=== PATIENT | female | born 1995 | race African-American/Black ===

== ENCOUNTER 2020-07-06 10:59 | Emergency (ER) | payer MEDICAID ==
[~2020-07-06] VITALS: Ht 177.8 cm; Wt 90.7 kg
[2020-07-06 11:07] VITALS: BP_SYST 129
[2020-07-06 11:40] VITALS: BP_SYST 129
== END 2020-07-06 11:40 | disposition home or self-care (01) ==
LOC: SED 10:59
DX: B35.4 Tinea corporis (principal); R03.0 Elevated blood-pressure reading, without diagnosis of hypertension
CPT/HCPCS: 99282

== ENCOUNTER 2020-11-14 17:58 | Emergency (ER) | payer MEDICAID ==
[~2020-11-14] VITALS: Ht 180.3 cm; Wt 97.5 kg
[2020-11-14 18:05] VITALS: BP_SYST 141
[2020-11-14 19:25] VITALS: BP_SYST 141
== END 2020-11-14 19:26 | disposition home or self-care (01) ==
LOC: SED 17:58
DX: T65.891A Toxic effect of other specified substances, accidental (unintentional), initial encounter (principal); F12.90 Cannabis use, unspecified, uncomplicated; Y92.89 Other specified places as the place of occurrence of the external cause
CPT/HCPCS: 99283

== ENCOUNTER 2021-02-20 21:06 | Emergency (ER) | payer MEDICAID ==
[~2021-02-20] VITALS: Ht 177.8 cm; Wt 95.3 kg
--- NOTE | 2021-02-20 21:38 | NUR ---
ER Dr. Robison at bedside examining patient.
[2021-02-20 21:46] VITALS: BP_SYST 108
--- NOTE | 2021-02-20 21:46 | NUR ---
Patient triaged and placed in waiting room. VSS and patient appears in no acute distress at this time. Accompanied by self, awaiting available bed, and MD notified of need for MSE.
--- NOTE | 2021-02-20 21:57 | NUR ---
Patient to ER bed 01 to gown for evaluation. Side rails up. Report given to BERTO Nagel
[2021-02-20] MEDS ORDERED: KETOROLAC TROMETHAMINE 60 MG/2 ML VIAL IM ONE (22:00)
--- NOTE | 2021-02-20 22:07 | NUR ---
pt a&o x4 from home c/o middle/center back pain that radiates to lower right side. pt reports 6 out of 10. pt states pain started yesterday afternoon and continued to worsen. pt denies trauma to back. 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 pt c/o of burning rash on right armpit.
--- NOTE | 2021-02-20 22:15 | NUR ---
radiology at bedside for xray
--- NOTE | 2021-02-20 22:15 | NUR ---
Urine HCG done, results negative
[2021-02-20] MEDS ORDERED: HYDR-3919 PO (23:04)
[2021-02-20] MEDS ORDERED: IBUP-1969 PO (23:04)
[2021-02-20 23:21] VITALS: BP_SYST 112
--- NOTE | 2021-02-20 23:21 | NUR ---
Patient given written and verbal discharge instructions and verbalizes understanding. ER MD discussed with patient the results and treatment provided. Patient in stable condition. ID arm band removed. no iv Rx of norco and ibuprofen given. Patient educated on pain management and to follow up with PMD. Pain Scale [2/10. Opportunity for questions provided and answered. Medication side effect fact sheet provided.
== END 2021-02-20 23:21 | disposition home or self-care (01) ==
LOC: SED 21:06
DX: S23.3XXA Sprain of ligaments of thoracic spine, initial encounter (principal); X50.1XXA Overexertion from prolonged static or awkward postures, initial encounter; Y93.89 Activity, other specified; Y92.89 Other specified places as the place of occurrence of the external cause; Y99.8 Other external cause status
CPT/HCPCS: 71046; 81025; 93005; 96372; 99283; J1885

== ENCOUNTER 2022-05-10 07:23 | Emergency (ER) | payer MEDICAID ==
[~2022-05-10] VITALS: Ht 177.8 cm; Wt 97.5 kg
[~2022-05-10 07:23] MED LIST: HYDR-3919 PO; IBUP-1969 PO
[2022-05-10 07:31] VITALS: BP_SYST 139
--- NOTE | 2022-05-10 07:34 | NUR ---
Placed in room 7 . Placed on campus monitor, blood pressure machine and pulse oximeter. To gown for exam. Side rails up. Report given to BERTO ALONZO.
--- NOTE | 2022-05-10 07:40 | NUR ---
DR. EDMONDS MET WITH PT AND DISCUSSE POC. PT WILL RECEIVE LABS TO ASSESS BLOOD LOSS. PT WILL NEED TO FOLLOW UP WITH GYNOCOLOGIST. PT VERBALIZED UNDERSTANDING.
--- NOTE | 2022-05-10 07:40 | NUR ---
RECEIVED PT FROM SULTANA THOMSON, ASSUMED CARE. PT AAOX4. RESP E/U. ON R/A. PT HAS C/O NAUSEA AND DIZZINESS, BLEEDING 5 PADS A DAY APPROX X ONE MONTH, RECENTLY WENT TO AN ER AND RECEIVED MEDICATION FOR THE ISSUE. DENIES PAIN. SKIN CDI, NO EDEMA. AWAITING ORDERS.
[2022-05-10] MEDS ORDERED: ACETAMINOPHEN 325 MG TABLET PO ONE (07:45)
--- NOTE | 2022-05-10 08:01 | NUR ---
LAB DRAW OBTAINED, UA SAMPLE OBTAINED AND TAKEN TO LAB.
[2022-05-10 08:06] LABS: BASOPHILS % (AUTO) 0.9 % (0.0-2.0); EOSINOPHILS % (AUTO) 0.7 % (0.0-4.0); HEMATOCRIT 38.8 % (36-48); HEMOGLOBIN 13.1 g/dL (12.0-16.0); LYMPHOCYTES # (AUTO) 1.1 K/uL (1.0-5.5); LYMPHOCYTES % (AUTO) 21.1 % (20.5-51.5); MEAN CORPUSCULAR HEMOGLOBIN 28 pg (27-31); MEAN CORPUSCULAR HGB CONC 34 % (32-36); MEAN CORPUSCULAR VOLUME 83 fL (79.0-98.0); MONOCYTES # (AUTO) 0.4 K/uL (0.0-1.0); MONOCYTES % (AUTO) 6.6 % (1.7-9.3); NEUTROPHILS # (AUTO) 3.8 K/uL (1.8-7.7); NEUTROPHILS % (AUTO) 70.7 % (40.0-70.0); PLATELET COUNT (AUTO) 225 K/uL (130-430); RED BLOOD CELL COUNT(AUTO) 4.69 MIL/uL (4.2-6.2); RED CELL DISTRIBUTION WIDTH 13.2 % (9.0-15.0); WHITE BLOOD COUNT (AUTO) 5.4 K/uL (4.8-10.8)
[2022-05-10 08:22] LABS: CREATININE 0.83 mg/dL (0.55-1.30); POTASSIUM 4.9 mmol/L (3.5-5.1)
[2022-05-10 08:34] LABS: ALBUMIN 3.7 g/dL (3.4-4.8); TOTAL BILIRUBIN 0.4 mg/dL (0.0-1.0)
[2022-05-10] MEDS ORDERED: IBUP-1969 PO (08:45)
--- NOTE | 2022-05-10 09:33 | NUR ---
Patient given written and verbal discharge instructions and verbalizes understanding. ER MD discussed with patient the results and treatment provided. Patient in stable condition. ID arm band removed. IV catheter removed FROM RH, intact and dressing applied, no active bleeding. Rx of IBUPROPHEN given. Patient educated on pain management and to follow up with PMD. Pain Scale 0/1. Opportunity for questions provided and answered. Medication side effect fact sheet provided.
[2022-05-10 09:35] VITALS: BP_SYST 139
== END 2022-05-10 09:33 | disposition home or self-care (01) ==
LOC: SED 07:23
DX: N93.8 Other specified abnormal uterine and vaginal bleeding (principal); F17.200 Nicotine dependence, unspecified, uncomplicated
CPT/HCPCS: 36415; 80053; 81025; 85025; 99283

== ENCOUNTER 2022-08-06 15:24 | Emergency (ER) | payer MEDICAID ==
[~2022-08-06] VITALS: Ht 177.8 cm; Wt 102.1 kg
[2022-08-06 15:40] VITALS: BP_SYST 113
--- NOTE | 2022-08-06 15:49 | NUR ---
Patient to ER bed H1 to gown for evaluation. Side rails up.
--- NOTE | 2022-08-06 15:55 | NUR ---
ER DR. RIZO EXAMINING PT
[2022-08-06] MEDS ORDERED: DIAZEPAM 5 MG TABLET (VALIUM) PO ONE (16:00)
[2022-08-06] MEDS ORDERED: KETOROLAC TROMETHAMINE 30 MG VIAL IM ONE (16:00)
[2022-08-06] MEDS ORDERED: NAPR-1172 PO (17:20)
[2022-08-06] MEDS ORDERED: LIDO700A30 TP (17:34)
[2022-08-06 17:36] VITALS: BP_SYST 113
--- NOTE | 2022-08-06 17:38 | NUR ---
Patient given written and verbal discharge instructions and verbalizes understanding. ER MD discussed with patient the results and treatment provided. Patient in stable condition. ID arm band removed. Rx of NAPROXEN given. Patient educated on pain management and to follow up with PMD. Pain Scale 0/10. Opportunity for questions provided and answered. Medication side effect fact sheet provided.
[2022-08-06 19:00] LABS: BILIRUBIN,URINE NEGATIVE (NEGATIVE); BLOOD, URINE 3+ (NEGATIVE); COLOR,URINE YELLOW (YELLOW); GLUCOSE,URINE NEGATIVE (NEGATIVE); KETONES,URINE NEGATIVE (NEGATIVE); LEUKOCYTE ESTERASE ,URINE NEGATIVE (NEGATIVE); NITRITE, URINE NEGATIVE (NEGATIVE); PROTEIN URINE NEGATIVE (NEGATIVE); UROBILINOGEN,URINE 0.2 (0.2-1.0)
[2022-08-06 19:16] LABS: CLARITY/URINE SLIGHTLY HAZY (CLEAR)
[2022-08-06 19:22] LABS: BACTERIA,URINE MODERATE /HPF (None Seen); MUCUS,URINE None Seen /LPF (None Seen)
== END 2022-08-06 17:36 | disposition home or self-care (01) ==
LOC: SED 15:24
DX: S39.012A Strain of muscle, fascia and tendon of lower back, initial encounter (principal); Z79.899 Other long term (current) drug therapy; X50.1XXA Overexertion from prolonged static or awkward postures, initial encounter; Y93.89 Activity, other specified; Y92.89 Other specified places as the place of occurrence of the external cause; Y99.8 Other external cause status
CPT/HCPCS: 99283; 81000; 87086; 81025; 96372; J1885